=== PATIENT | male | born 1990 | race African-American/Black ===

== ENCOUNTER 2022-04-06 00:44 | Emergency (ER) | payer MEDICAID ==
[~2022-04-06] VITALS: Ht 180.3 cm; Wt 46.0 kg
[2022-04-06] MEDS ORDERED: PSYL58.632 PO (03:46)
[2022-04-06] MEDS ORDERED: TUCKS TOP (03:46)
[2022-04-06 04:00] VITALS: BP 121/78
== END 2022-04-06 04:01 | disposition home or self-care (01) ==
LOC: ER 00:44
DX: K64.4 Residual hemorrhoidal skin tags (principal); Z91.018 Allergy to other foods